=== PATIENT | male | born 1935 | race Caucasian/White ===

== ENCOUNTER → 2019-05-10 12:19 | Outpatient (CLI) | payer SELFPAY ==
[2016-03-07 15:28] VITALS: BMI 24.5
[2019-05-10 12:46] LABS: Magnesium 1.7 mg/dL (1.8-2.4); Potassium 2.9 mmol/L (3.5-5.1)
== END ==
PROVIDERS: Referring Provider Internal Medicine Nephrology; Visit Provider Internal Medicine Nephrology
DX: E87.6 Hypokalemia (principal)
CPT/HCPCS: 83735; 84132